=== PATIENT | male | born 1995 | race Caucasian/White ===

== ENCOUNTER 2021-07-29 19:36 | Emergency (ER) | payer OTHER ==
[2021-07-29 22:21] LABS: HEMOGLOBIN 16.9 gm/dl (14.0-17.5); RED BLOOD COUNT 5.6 M/UL (4.20-5.50)
[2021-07-29 22:41] LABS: BUN/CREATININE RATIO 15 (0-10)
[2021-07-30] MEDS ORDERED: BENTYL 20MG TAB20 MG PO (00:31)
[2021-07-30] MEDS ORDERED: ZOFRAN ODT 4 MG4 MG PO (00:31)
[2021-07-30] MEDS ORDERED: AMOX TR-K CLV1 EAC4 PO (00:31)
== END 2021-07-30 00:40 | disposition home or self-care (01) ==
LOC: ER1 19:36
PROVIDERS: Physician Assistant
DX: K52.9 Noninfective gastroenteritis and colitis, unspecified (principal); Z20.822 Contact with and (suspected) exposure to COVID-19
CPT/HCPCS: 80053; 81001; 83690; 85025; 87086; 96374; 99284; J2405; Q9967; U0003

== ENCOUNTER 2021-10-31 05:55 | Emergency (ER) | payer OTHER ==
[~2021-10-31 05:55] MED LIST: AMOX TR-K CLV1 EAC4 PO; BENTYL 20MG TAB20 MG PO; ZOFRAN ODT 4 MG4 MG PO
[2021-10-31 06:43] LABS: HEMOGLOBIN 14.3 gm/dl (14.0-17.5); RED BLOOD COUNT 4.8 M/UL (4.20-5.50); WHITE BLOOD COUNT 6.2 K/UL (4.5-11.0)
[2021-10-31 07:01] LABS: BUN/CREATININE RATIO 16 (0-10)
== END 2021-10-31 08:30 | disposition home or self-care (01) ==
LOC: ER1 05:55
PROVIDERS: Physician Assistant
DX: J10.1 Influenza due to other identified influenza virus with other respiratory manifestations (principal); M54.40 Lumbago with sciatica, unspecified side; Z20.822 Contact with and (suspected) exposure to COVID-19
CPT/HCPCS: 0240U; 71045; 72100; 80053; 82550; 82553; 84484; 85025; 85652; 86140; 93005; 96374; 96375; 99285; J1885; J2405